=== PATIENT | male | born 1950 | race Caucasian/White ===

== ENCOUNTER 2019-10-11 12:35 | Emergency (ER) | payer OTHER ==
[~2019-10-11] VITALS: Ht 157.5 cm; Wt 63.5 kg
[2019-10-11 14:43] VITALS: BP 134/82
== END 2019-10-11 14:49 | disposition home or self-care (01) ==
LOC: ER 12:35
DX: M25.512 Pain in left shoulder (principal); M25.522 Pain in left elbow; M25.552 Pain in left hip

== ENCOUNTER 2021-10-04 11:01 | Inpatient (IN) | payer OTHER ==
[~2021-10-04] VITALS: Ht 162.6 cm; Wt 57.6 kg
[2021-10-04 11:02] VITALS: BP 93/54
[2021-10-04 11:44] LABS: ABSOLUTE NEUTROPHILS 9.3 thou/uL (1.4-8.2); BASOPHILS 0.2 % (0.0-2.0); EOSINOPHILS 1.9 % (0.0-3.0); HEMATOCRIT 37.2 % (42.0-52.0); HEMOGLOBIN 12.5 gm/dL (14.0-18.0); LYMPHOCYTES 6.6 % (24.0-44.0); MCH 32.8 pg (26.0-34.0); MCHC 33.7 g/dL (28.0-37.0); MCV 97.3 fL (80.0-100.0); MONOCYTES 2.7 % (1.0-8.0); PLATELET COUNT 207 thou/uL (150-400); POLYS 88.6 % (36.0-66.0); RBC 3.83 mil/uL (4.50-6.00); RDW 12.7 % (10.5-14.5); WBC 10.5 thou/uL (4.0-11.0)
[2021-10-04 11:44] LABS: URINE BILIRUBIN NEGATIVE (Negative); URINE BLOOD NEGATIVE (Negative); URINE CLARITY CLEAR; URINE COLOR YELLOW; URINE GLUCOSE-RANDOM* NEGATIVE (Negative); URINE KETONES NEGATIVE (Negative); URINE LEUKOCYTES-REFLEX NEGATIVE (Negative); URINE NITRITE-REFLEX NEGATIVE (Negative); URINE PROTEIN (DIPSTICK) NEGATIVE (Negative); URINE SPECIFIC GRAVITY 1.015 (1.005-1.035); URINE UROBILINOGEN 0.2 E.U./dl (0.2-1.0)
[2021-10-04 11:53] LABS: CALCIUM 8.8 mg/dL (8.5-10.1); CREATININE 1.2 mg/dL (0.7-1.3); POTASSIUM 3.5 mmol/L (3.5-5.1)
[2021-10-04 12:05] LABS: ALBUMIN 2.7 g/dL (3.4-5.0); DIRECT BILIRUBIN 0.2 mg/dL (<0.1-0.2); TOTAL BILIRUBIN 0.5 mg/dL (0.2-1.0)
--- NOTE | 2021-10-04 12:54 | NUR ---
Mk-Brother [phone]
[2021-10-04 14:05] VITALS: BP 109/58
[2021-10-04 14:17] VITALS: BP 98/53
[2021-10-04 14:57] VITALS: BP 125/65
--- NOTE | 2021-10-04 18:04 | NUR ---
ADMISSION NOTE: PT ADMITTED APPROX 1500. A/O X 1, ORIENTED TO SELF ONLY. PT COMPLAINS OF GENERALIZED PAIN 10/10. ON 4 L NC. PER REPORT FROM ED, PT IS ON 6L NC AT HOME. TELEMETRY IN PLACE. CONSENTS SIGNED. PT TO USE URINAL AND BSC X 1 ASSIST. ORIENTED PT TO ROOM, CALL LIGHT AND BEDSIDE TABLE WITHIN REACH. PT POOR HISTORIAN AND CANNOT RECALL MEDICAL HISTORY OR INFORMATION TO CONTACT FAMILY. PT ON ENHANCED PRECAUTIONS UNTIL PCR TEST HAS RESULTS. CALLED CONSULTS, NO NEEDS ANA ROSA, WILL CONTINUE TO MONITOR.
[2021-10-04 19:40] VITALS: BP 120/71
[2021-10-05 03:15] VITALS: BP 125/65
[2021-10-05 03:42] LABS: ABSOLUTE NEUTROPHILS 11.8 thou/uL (1.4-8.2); BASOPHILS 0.2 % (0.0-2.0); EOSINOPHILS 0.8 % (0.0-3.0); HEMATOCRIT 35.5 % (42.0-52.0); HEMOGLOBIN 11.8 gm/dL (14.0-18.0); LYMPHOCYTES 8.5 % (24.0-44.0); MCH 32.5 pg (26.0-34.0); MCHC 33.3 g/dL (28.0-37.0); MCV 97.8 fL (80.0-100.0); MONOCYTES 3.7 % (1.0-8.0); PLATELET COUNT 222 thou/uL (150-400); POLYS 86.8 % (36.0-66.0); RBC 3.63 mil/uL (4.50-6.00); RDW 13.1 % (10.5-14.5); WBC 13.6 thou/uL (4.0-11.0)
[2021-10-05 03:56] LABS: ALBUMIN 2.6 g/dL (3.4-5.0); CALCIUM 8.1 mg/dL (8.5-10.1); CREATININE 1.1 mg/dL (0.7-1.3); MAGNESIUM 1.9 mg/dL (1.8-2.4); POTASSIUM 3.2 mmol/L (3.5-5.1); TOTAL BILIRUBIN 0.3 mg/dL (0.2-1.0); TOTAL PROTEIN 5.9 g/dL (6.4-8.2)
--- NOTE | 2021-10-05 06:30 | NUR ---
CARE ASSUMED AT 1900. PT IS ALERT & ORIENTED X 2 (PERSON & PLACE). PT HAD MULTIPLE C/O OF PAIN. PAIN MEDS ADMINISTERED PRN AND PARTIAL RELIEF NOTED. BLOOD CULTURES CAME BACK POSITIVE FOR GRAM POSITIVE COCCI. NOTIFIED CHIROPRACTOR SOLE PRACTITIONER AND RECIEVED ORDERS. PT IS ABLE TO EXPRESS NEEDS AND ALL NEEDS ARE MET AT THIS TIME. BED ALARM ON AND CALL LIGHT WITHIN REACH. WILL CONTINUE TO MONITOR.
[2021-10-05 07:30] VITALS: BP 130/77
--- NOTE | 2021-10-05 10:58 | HC ---
[facility] [place] [address] CONSULTATION Name: ANDREW DIEGO Room #: 360-P [facility] IN M.R.#: [id number] Admission: 10/04/21 Attend Phys: Tita Reynolds MD Discharge: Date of : 50 Report #: [id number] THIS REPORT FOR: cc: FAM - Family physician unknown FAM - Family physician unknown Samuel Kimbrough MD ~ cc: Tita Reynolds MD DATE OF SERVICE: 10/04/2021 HISTORY OF PRESENT ILLNESS: The patient is a 71-year-old male with generalized weakness, abdominal pain. He is a fairly poor historian with a history of Alzheimer's dementia, he is unable to tell me how long he has been having abdominal pain. He wants me to discuss this with his sister. Currently, denies any fevers, chills. No chest pain or shortness of breath. Reason for GI consultation is elevated liver function tests and the patient underwent a CT scan of the abdomen and pelvis on admission that showed dilated intra and extrahepatic bile duct with common bile duct being 12 mm with suspected choledocholithiasis. His bilirubin is normal as well as his white count at this time. He also has a distended gallbladder on CT. Pancreas was unremarkable. PAST MEDICAL HISTORY: Hammertoe, Alzheimer's dementia. REVIEW OF SYSTEMS: Essentially unobtainable due to his mental status. ALLERGIES: No known drug allergies. SOCIAL HISTORY: Unknown. FAMILY HISTORY: Unknown. PHYSICAL EXAMINATION: VITAL SIGNS: Temperature is 37.1, pulse 105, blood pressure 198/53, respiratory rate is 24. GENERAL: He answers several questions, but is not interested in talking with me at length. He is in no acute distress. He says he is tired and wants to be left alone. HEENT: Sclerae nonicteric. Oropharynx clear. NECK: Supple. CARDIOVASCULAR: Regular rate and rhythm. CHEST: Decreased breath sounds bilaterally. ABDOMEN: Soft, is mildly distended. He is mildly tender in the right upper quadrant. EXTREMITIES: No cyanosis, clubbing or edema. [facility] [address] [place] [address] CONSULTATION Name: YASSINEMARTINEZZEANDREW Room #: 360-P [facility] IN .R.#: [id number] Admission: 10/04/21 Attend Phys: Tita Reynolds MD Discharge: Date of : 50 Report #: [id number] LABORATORY DATA: WBC is 10.5, hemoglobin 12.5, platelet count 207, sodium 138, potassium 3.5, chloride 104, bicarbonate 26, BUN 16, creatinine 1.2, total bilirubin 0.5, AST 90, ALT 70, alkaline phosphatase 157, lipase 65. ASSESSMENT AND PLAN: Elevated liver function test, recent history of abdominal pain. The patient is a poor historian. He does have a distended gallbladder. He also has a dilated common bile duct with suggested common bile duct stones. Bilirubin is normal at this time. The patient may need ERCP in the near future. Agree with antibiotics. Surgery has been consulted as well. The patient does have an infiltrate in is lungs on CT. COVID is negative. We will continue to follow. Thank you for allowing me to participate in his care. <ELECTRONICALLY SIGNED> By: Samuel Kimbrough MD 10/05/21 1058 1345 [id number] Samuel Kimbrough MD /nt
[2021-10-05 11:13] VITALS: BP 132/72
[2021-10-05] MEDS ORDERED: ALPRAZOLAM1 M1 PO (11:20)
[2021-10-05] MEDS ORDERED: PROSCAR 5MG TABL5 M1 PO (11:21)
[2021-10-05] MEDS ORDERED: KAPSPARGO SPRIN25 MG PO (11:21)
[2021-10-05] MEDS ORDERED: MEMANTINE HCL E28 MG PO (11:23)
[2021-10-05] MEDS ORDERED: PROTONIX40 M2 PO (11:24)
[2021-10-05] MEDS ORDERED: TAMSULOSIN HCL0.4 MG PO (11:24)
[2021-10-05] MEDS ORDERED: HYDROCODON-ACE1 EAC7 PO (11:25)
[2021-10-05] MEDS ORDERED: LIPITOR 20 MG T20 M1 PO (11:25)
[2021-10-05] MEDS ORDERED: LEXAPRO20 MG PO (11:25)
[2021-10-05] MEDS ORDERED: PROBIOTIC1 EAC7 PO (11:26)
[2021-10-05] MEDS ORDERED: ASA81BEC PO (11:26)
[2021-10-05] MEDS ORDERED: SUPER THERAVIT1 EACH PO (11:27)
[2021-10-05] MEDS ORDERED: VITAMIN C250 MG PO (11:27)
[2021-10-05] MEDS ORDERED: OMEGA 3 FISH O1 EACH PO (11:28)
[2021-10-05] MEDS ORDERED: BENADRYL25 MG PO (11:29)
[2021-10-05] MEDS ORDERED: BIOFREEZE118 ML TOP (11:30)
[2021-10-05] MEDS ORDERED: PROAIR HFA8.5 GM INH (11:30)
[2021-10-05] MEDS ORDERED: WIXELA 250-501 EACH NASAL (11:31)
[2021-10-05 15:47] VITALS: BP 139/80
--- NOTE | 2021-10-05 18:21 | NUR ---
PT A/O X 1, ONLY ORIENTED TO SELF. PT FREQUENTLY CALLING OUT FOR HELP THROUGHOUT SHIFT. PT FREQUENT COMPLAINTS OF PAIN, PT STATING PAIN MEDICATION IS NOT EFFECTIVE. PT THREATENED TO LEAVE AMA THIS MORNING, STATING "IF I CANT GET A COLA, IM LEAVING, YOU CANT KEEP ME HERE". AFTER SPEAKING WITH GI DR, PT ON SOFT DIET. PT TO BE NPO AFTER 6 AM 10/06/21 FOR ERCP PROCEDURE. THIS RN SPOKE WITH FAMILY AND RECIEVED NEW INFORMATION ABOUT PT. PT HX OF ALZHEIMERS, ACID REFLUX, HYPERCHOLESTEROLEMIA, COPD, NOT ON HOME 02, PREVIOUS SHOULDER AND HIP REPLACEMENT, AND CVA X 3. PT BROTHER ALSO STATED TO THIS RN THAT PT CANNOT READ OR WRITE. PT BROTHER WOULD LIKE TO GET DPOA PAPERWORK COMPLETED THIS HOSPITALIZATION. PT USES WALKER AT BASELINE. MED REC ALSO UPDATED. PT FREQUENTLY ATTEMPTS TO GET OUT OF BED, EDUCATION ON FALL PRECAUTIONS NOT EFFECTIVE. BM X 5 THIS SHIFT, DARK GREEN IN COLOR. NO CURRENT NEEDS, WILL CONTINUE TO MONITOR.
[2021-10-05 19:49] VITALS: BP 129/64
[2021-10-06 02:30] VITALS: BP 139/57
[2021-10-06 07:20] VITALS: BP 130/59
--- NOTE | 2021-10-06 07:36 | EKG ---
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
[2021-10-06 08:06] LABS: BASOPHILS 0.3 % (0.0-2.0); EOSINOPHILS 0.8 % (0.0-3.0); HEMATOCRIT 35.7 % (42.0-52.0); HEMOGLOBIN 11.6 gm/dL (14.0-18.0); LYMPHOCYTES 8.7 % (24.0-44.0); MCHC 32.5 g/dL (28.0-37.0); MCV 101.3 fL (80.0-100.0); MONOCYTES 4.8 % (1.0-8.0); PLATELET COUNT 192 thou/uL (150-400); POLYS 85.4 % (36.0-66.0); RBC 3.52 mil/uL (4.50-6.00); RDW 13.4 % (10.5-14.5); WBC 9.3 thou/uL (4.0-11.0)
[2021-10-06 08:15] LABS: ALBUMIN 2.6 g/dL (3.4-5.0); CALCIUM 8.1 mg/dL (8.5-10.1); CREATININE 0.9 mg/dL (0.7-1.3); MAGNESIUM 1.7 mg/dL (1.8-2.4); POTASSIUM 3.1 mmol/L (3.5-5.1); TOTAL BILIRUBIN 0.3 mg/dL (0.2-1.0); TOTAL PROTEIN 5.5 g/dL (6.4-8.2)
[2021-10-06 09:10] VITALS: BP 125/61
--- NOTE | 2021-10-06 09:45 | NUR ---
RN NOTE FOR 10/05/21 TO 10/06/21 7P-7A. PT PLEASANT AND COOPERATIVE EARLIER DURING THE SHIFT JUST MILDLY CONFUSED. LATER DURING THE SHIFT PT WAS MEDICATED FOR PAIN AND ANXIETY. HE BECAME NORE CONFUSED AND IMPULSIVE. NS WAS ATTEMTING TO FREE HIS IV LINE FROM LYING UNDERNEATH HIS ARM BECAUSE HIS IV WAS ALARMING HE BEGAN YELLING AND TOLD NS TO LEAVE. PT BEGAN TO GET UP OOB AND PULLED ON HIS IV AND O2 TUBING. I CALLED FOR CHARGE NS FOR ASSISTANCE WITH PT AND PT BEGAN TO YELL AT HIM WELL. PT PULLED OUT HIS IV. I ATTEMPTED TO TAKE DRESSING OFF AND START ANOTHER IV AND PT GOT VERY ANGRY WITH THIS NS . I EXPLAINED NEED FOR IN FOR FLUIDS AND ABX. PT WAS REFUSING. PT AGREED TO IV IF HE COULD GET HIS PAIN MEDS. IV PLACED PAIN MEDS GIVEN. PT APOLOGIZED TO NS FOR HIS [place] FLASHBACK DREAM WHEN HE WAS AWAKENED IN THE MIDDLE OF HIS SLEEP. PT UP AD DOWN TO BSC. FORGETFUL THAT HE JUST GOT UP. BED ALARM IS ON. NPO AFTER MN FOR ERCP. SPKE WITH PT'S BROTHER KRZYSZTOF REGARDING COMING TO SEE PT. SW TO SEE PT AND BROTHERS RE DPOA ETC. THE [place] WAR. HE TOLD
[2021-10-06 11:27] VITALS: BP 139/57
--- NOTE | 2021-10-06 16:38 | NUR ---
INITIAL ASSESSMENT: Received consult to assist with DPOA ppwk. EVELYN reviewed chart and spoke with nursing and attending physician. Pt was admitted from home due to acute cholecystitis. Pt is currently on IV abx and 2L of O2. Pt placed in isolation to r/o c.diff. Pt is off the unit having ERCP. Psych consulted to evaluate pt for ability to make decisions. Pt with hx of dementia. No family present during time of SW visit. EVELYN spoke with pt's brother, Mk, via phone. Introduced role of EVELYN. Per Mk, pt lives at home with his brothers, Mk and Chris. Prior to admission, pt was using a walker. Pt has used HH in the past following hip surgery. Pt has also been to a SNF. Pt's brother is unsure of name of providers. Pt's PCP is Dr. Kip Brown. EVELYN discussed that therapy evals will be ordered to assist with discharge needs. Mk states that family would prefer that pt return home with HH. EVELYN updated attending physician and requested therapy evals to be ordered. EVELYN is following to assist as needed with discharge planning.
[2021-10-06 18:22] VITALS: BP 140/63
[2021-10-06 19:28] VITALS: BP 147/83
--- NOTE | 2021-10-06 20:00 | NUR ---
RN ASSUMED PT'S CARE AT 0700-1900PM, PT IS A&OX2 ( PERSON AND PLACE), BUT PT IS CONFUSED AND IMPULSIVE AT TIME, PT IS HIGH FALL RISK , PT IS CONTINUING IV ABX AND PAIN MANAGEMENT, RN HAS REPORTED PT'S LOW K+ 3.1 ,MAG+1.7, NEW ORDER RECEIVED, PT WAS GOING TO GI LAB AT 1430PM, PT COME BACK FROM GI LAB ABOUT 1800PM,PT HAS EGD DONE ( BALLOON DILATTION), PT'S VS ARE STABLE, RN HAS REPORTED HOSPITAL DR AND GI DR ABOUT PT'S ABDOMINAL DISTENDED, NEW ORDER X-RAY KUB , RN HAS REPORTED TO NEXT SHIFT TO KEEP EYES ON PT.
--- NOTE | 2021-10-06 20:22 | NUR ---
jose daniel wnl. no f/u necessary per report.
--- NOTE | 2021-10-06 22:22 | NUR ---
PT FREQUENTLY UP AND OOB STEADY GAIT. REPETITIVE STATEMENTS REGARDING MARTIAL ARTS, ABILITY TO WALK. PT HAD LOOSE STOOL X 1. IVF INTACT. ABD DISTENDED AND SOFT, KUB OBTAINED. PALE SKIN TONE. PT NOTED TO HAVE BUE TREMORS. BED ALARM ON.
[2021-10-07 03:31] VITALS: BP 141/72
[2021-10-07 08:37] LABS: ABSOLUTE NEUTROPHILS 7.3 thou/uL (1.4-8.2); BASOPHILS 0.1 % (0.0-2.0); HEMATOCRIT 37.4 % (42.0-52.0); HEMOGLOBIN 12.3 gm/dL (14.0-18.0); LYMPHOCYTES 9.4 % (24.0-44.0); MCH 32.9 pg (26.0-34.0); MCHC 32.9 g/dL (28.0-37.0); MCV 100.1 fL (80.0-100.0); MONOCYTES 4.5 % (1.0-8.0); PLATELET COUNT 195 thou/uL (150-400); RBC 3.73 mil/uL (4.50-6.00); RDW 13.3 % (10.5-14.5); WBC 8.4 thou/uL (4.0-11.0)
[2021-10-07 09:05] LABS: ALBUMIN 2.6 g/dL (3.4-5.0); CALCIUM 8.4 mg/dL (8.5-10.1); MAGNESIUM 2.2 mg/dL (1.8-2.4); POTASSIUM 3.4 mmol/L (3.5-5.1); TOTAL BILIRUBIN 0.3 mg/dL (0.2-1.0); TOTAL PROTEIN 6.1 g/dL (6.4-8.2)
--- NOTE | 2021-10-07 17:05 | NUR ---
Case discussed in team rounds. Ranulfo venegas today. Brothers hoping pt can come home with HH at [place]. PT/OT and psych evals pending. Will follow.
[2021-10-07 19:22] VITALS: BP 151/80
[2021-10-08 03:25] VITALS: BP 155/83
--- NOTE | 2021-10-08 06:32 | NUR ---
ASSUMED PT CARE AT 1900. PT IS ALERT & ORIENTED X 1-2, IS CALM & COOPERATIVE. PT HAD C/O OF GENRERALIZED PAIN. ADMINISTERED PAIN MEDS AND NOTED RELIEF. CURRENTLY ON 4L O2 NC AND O2 SATS 94-95%. VSS AFEBRILE. LAP BETO SITES C/D/I. IV ABX & IVF ADMINISTERED. ALL NEEDS ARE MET AT THIS TIME. CONTINUE WITH PLAN OF CARE.
[2021-10-08 07:15] VITALS: BP 143/73
[2021-10-08 11:06] VITALS: BP 147/69
[2021-10-08 12:52] LABS: HEMATOCRIT 33.5 % (42.0-52.0); HEMOGLOBIN 11.4 gm/dL (14.0-18.0); MCH 32.3 pg (26.0-34.0); RBC 3.53 mil/uL (4.50-6.00); RDW 12.7 % (10.5-14.5); WBC 12.5 thou/uL (4.0-11.0)
[2021-10-08 12:55] LABS: MCV 95.1 fL (80.0-100.0)
[2021-10-08 13:08] LABS: CALCIUM 7.9 mg/dL (8.5-10.1)
[2021-10-08 13:10] LABS: POTASSIUM 2.4 mmol/L (3.5-5.1)
--- NOTE | 2021-10-08 15:19 | NUR ---
EVELYN reviewed chart and spoke with nursing and attending physician. Pt had karie venegas yesterday. PT/OT ordered. Recommendation made for pt to go to post-acute care. EVELYN met with pt at bedside. Pt is currently on oxygen. Pt states he is hoping to go home. SW left in-network SNF list in wall server assistant for family to review. Will need insurance authorization. EVELYN spoke with pt's brother, Mk, to provide update and discuss post-acute placement. Mk requests SW contact his sister, Viola. EVELYN placed call to Viola ([phone]). Voice mailbox has not been set up. EVELYN is following to assist as needed with discharge planning.
[2021-10-08 15:21] VITALS: BP 152/72
--- NOTE | 2021-10-08 18:41 | NUR ---
PT A/O X 1. PT IMPULSIVE AND ATTEMPTS TO GET OUT OF BED, BED ALARM ON. SPOKE WITH FAMILY X 3 THIS SHIFT, AND EDUCATED PT FAMILY ABOUT HAVING 1 DESIGNATED FAMILY MEMBER TO GET UPDATES. POOR APPETITE. ON 4 L NC. PT STATES TO RN MULTIPLE TIMES "YOU PUT CRACK COCAINE IN MY FOOD, AND IN MY IV". NO COMPLAINTS OF PAIN. WILL CONTINUE TO MONITOR.
[2021-10-08 19:10] VITALS: BP 137/66
[2021-10-09 04:27] VITALS: BP 171/85
--- NOTE | 2021-10-09 05:14 | NUR ---
PROGRESS PT A/O X4 BUT IMPULSIVE AND FORGETFUL AT TIMES PULLED 2 IV'S OUT THIS SHIFT AND COULDN'T SAY WHY HE DID. TELEMETRY INTACT READING SR/SB IN THE 60'S. IV FLUIDS INFUSING ORDERED, IV ANTIBIOTICS CONTINUE. RATING ABDOMINAL PAIN A 6 AND HYDROCODONE GIVEN WITH SOME EFFECT. VOIDING QS PER URINAL. NO BM THIS SHIFT. BS POSITIVE LAP SITES TO ABDOMEN X 4 ROOM SERVICE RUNNER WELL APPROXIMATED WITH NO DRAINAGE NOTED.
[2021-10-09 07:27] VITALS: BP 163/75
[2021-10-09 11:15] VITALS: BP 160/79
--- NOTE | 2021-10-09 14:07 | PATH ---
[facility] [place] [address] PATHOLOGY RPT PROCEDURE Name: ANDREW DIEGO Room #: 360-P [facility] IN M.R.#: [id number] Admission: 10/04/21 Date of : 50 Discharge: Report #: [id number] Path Case #: [id number] [facility] Accession Number: [id number] . 01 Material submitted: . gallbladder - GALLBLADDER . 01 Clinical history: . LAPAROSCOPIC CHOLECYSTECTOMY W/GRAM CHOLEDOCHOLILITHIASIS . 02 Diagnosis: Gallbladder, cholecystectomy: - Subacute cholecystitis without cholelithiasis. . (ANK:mmbe; 10/08/2021) [facility] 10/08/2021 1204 Local . 02 Electronically signed: . Brunilda Washburn MD, Pathologist NPI- [id number] . 01 Gross description: . Fixative: Formalin Labeled: Gallbladder Specimen received: Intact gallbladder Dimensions: 6.8 x 2.8 x 1.2 cm Serosa: Purple-red and wrinkled to roughened Lymph node: Not identified Mucosa: Yellow-red, velvety Average wall thickness: Up to 0.5 cm Calculi: None present within the specimen or container Abnormalities: None identified . A1- Business Systems Analyst body, fundus, and the cystic duct margin. ([facility]; 10/07/2021) NRI/NRI 10/07/2021 1712 Local . 02 Pathologist provided ICD-10: K81.1 . 02 CPT . [id number] Specimen Comment: A courtesy copy of this report has been sent to [phone] Specimen Comment: [id number] Specimen Comment: Report sent to / DR PORTILLO [address] [address] PATHOLOGY RPT PROCEDURE Name: JOHNATHONANDREW Yesica Room #: 360-P [facility].#: [id number] Admission: 10/04/21 Date of : 50 Discharge: Report #: [id number] Path Case #: [id number] Specimen Comment: A duplicate report has been generated due to demographic updates. Performed at: 01 [facility] [address] [facility] [address], [place] [id number] MD Myles Mora MD Phone: [phone] Performed at: [address] [id number] MD Brunilda Washburn MD Phone: [phone]
--- NOTE | 2021-10-09 14:29 | NUR ---
EVELYN reviewed chart and spoke with nursing and attending physician. Pt is progressing towards goals for discharge. EVELYN spoke with pt's sister, Viola, via phone to discuss discharge plan. Per Viola, family is wanting pt to return home with HH. Pt has been to a SNF in the past and became confused in an unfamiliar environment. Viola spent the night at the facility because pt would get up and out of his room. EVELYN discussed HH services with Viola. Viola states pt will have 24 hour care provided by family. Pt lives with his two brothers. Options for HH providers discussed. No preference voiced. EVELYN confirmed pt's home address. Pt is currently still on 2L of O2. Pt was not on O2 prior to admission. EVELYN discussed with attending physician. Anticipate discharge home tomorrow with HH services. EVELYN faxed HH referral to [facility] . Notified HH liaison. Rest/exercise oximetry will need to be ordered to determine home health needs. EVELYN is following to assist as needed with discharge planning.
[2021-10-09 15:04] VITALS: BP 165/80
--- NOTE | 2021-10-09 18:11 | NUR ---
RESUMED PT CARE THIS AM. PT ON 2L, PT IMPULSIVE AND WILL PULL OXYGEN OFF OCCASIONALLY. PT ALSO FREQUENTLY ATTEMPTS TO GET OUT OF BED, BED ALARM ON. THIS RN SPOKE WITH FAMILY X 2 TODAY. SPOKE WITH PT SISTER, WHO CLAIMS IS PT DPOA, BUT DOES NOT HAVE PAPERWORK TO PROVIDE HOSPTIAL. PT TO DISCHARGE WITH HH TOMORROW 10/10/21. FALL PRECAUTIONS IN PLACE. WILL CONTINUE TO MONITOR.
[2021-10-09 19:32] VITALS: BP 167/80
[2021-10-10 03:43] VITALS: BP 156/82
--- NOTE | 2021-10-10 04:49 | NUR ---
PROGRESS PT A/O X 4 REMAINS IMPULSIVE. GETS OOB WITHOUT CALLING BED ALARMS IN PLACE. PT'S GAIT FAIRLY STEADY HE JUST RUSHES AROUND TO GET ON BSC. HAD 5 SMALL LOOSE STOOLS MIRALAX HELD. VOIDING QS. APPETITE HAS IMPROVED SLIGHTLY PLAN TO DC HOME WITH FAMILY CARE AND HOME HEALTH. ATTEMPTED TO RESTART IV AND HE PULLED IT OUT BEFORE IT WAS HOOKED BACK UP TO FLUIDS, REFUSED ANOTHER RESTART.
[2021-10-10 07:32] VITALS: BP 146/89
--- NOTE | 2021-10-10 08:12 | P ---
[facility] [place] [address] PROCEDURE REPORT Name: ANDREW DIEGO Room #: 360-P ADM IN M.R.#: [id number] Admission: 10/04/21 Attend Phys: Tita Reynolds MD Discharge: Date of : 50 Report #: [id number] THIS REPORT FOR: cc: FAM - Family physician unknown FAM - Family physician unknown Samuel Kimbrough MD ~ cc: Jared Persaud MD, Tita Reynolds MD DATE OF SERVICE: 10/06/2021 PROCEDURE PERFORMED: Upper endoscopy with balloon dilation and attempted ERCP. HISTORY OF PRESENT ILLNESS: The patient is a 71-year-old male, fairly poor historian, who was admitted with abdominal pain, was noted to have elevated liver function test. AST on admission was 90, ALT 70, total bilirubin 0.5, alkaline phosphatase was 157. He underwent a CT scan of his abdomen and pelvis on 10/04/2021, which showed intra and extrahepatic biliary dilation, common bile duct was 12 mm in size with suspected choledocholithiasis. The gallbladder was distended as well. He has been placed on antibiotics. Surgery is following. The plan is for ERCP today. DESCRIPTION OF PROCEDURE: The risks and benefits of the procedure explained with his sister who is a durable power of consumer attorney. Those risks including but not limited to bleeding, perforation and the risk of sedation as well as the potential risk for post-ERCP pancreatitis. She understood these risks and gave informed consent. The procedure was performed in the operating room under general anesthesia. The patient is already on IV antibiotics 50 mg, indomethacin rectal suppository was given prior to the procedure as well. Next, I initially started with a standard Olympus upper endoscope as the patient had a CT of the chest on admission showing thickening of the distal esophagus. The scope was placed in the patient's mouth and advanced under direct vision into the esophagus, stomach and into the second portion of the duodenum. The upper and mid esophagus was normal. In the distal esophagus, grade D erosive esophagitis was noted. No evidence of stricture, no evidence of bleeding. Overall, the gastric mucosa was normal. The pylorus was normal and patent. The duodenal bulb was normal; however, in the first portion of the duodenum, it was difficult to pass the front-viewing scope through the first portion due to a tight turn and a mild narrowing in this area. No ulcerations or erosions were noted. When I was able to pass the scope through, a large diverticulum was noted. The papilla was not seen with the front-viewing scope. At this point, the scope was then withdrawn and a side-viewing scope was then introduced. This was advanced into the duodenal bulb. I attempted multiple times to pass the side-viewing scope, ERCP scope through the first portion of the duodenum, but was difficult and I was unsuccessful. At this point, I removed the ERCP scope and reintroduced the front-viewing scope. I then proceeded with balloon dilation of the first to second portion of the duodenum going from 15 mm all the [address] [address] PROCEDURE REPORT Name: ANDREW DIEGO Room #: 360-P [facility] IN .R.#: [id number] Admission: 10/04/21 Attend Phys: Tita Reynolds MD Discharge: Date of : 50 Report #: [id number] to 18 mm, holding this in place for 1 minute. At this point, the front-viewing scope was again withdrawn and the side-viewing scope was then replaced. Eventually with significant difficulty, I was able to advance the side-viewing scope into the second portion of the duodenum. At this point, I was able to visualize a diverticulum, which was large. I spent a fair amount of time looking throughout the diverticulum on the edges and unable to identify the major papilla. I used a sphincterotome to try to pull the mucosa around the edge of the diverticulum as well. Never seen the major papilla. At this point, the scope was then withdrawn and the procedure terminated. The patient tolerated the procedure well. IMPRESSION: 1. Grade D erosive esophagitis. 2. Balloon dilation of the first portion of the duodenum with a tight turn and narrowing in this area. 3. Large duodenal diverticulum. 4. Unsuccessful ERCP due to inability to locate major papilla due to anatomy and a large diverticulum in the second portion. RECOMMENDATIONS: 1. Would recommend daily PPI therapy long-term. 2. We will discuss with Dr. Persaud in General Surgery about possible laparoscopic cholecystectomy with intraoperative cholangiogram. 3. If common bile duct stones are seen, may need to consider patient being evaluated by Dr. Johnson at [facility] or at [facility]. Thank you for allowing me to participate in his care. <ELECTRONICALLY SIGNED> By: Samuel Kimbrough MD 10/10/2112 1635 55 Samuel Kimbrough MD /nt
[2021-10-10 10:33] VITALS: BP 146/89
--- NOTE | 2021-10-10 12:10 | NUR ---
DISCHARGE NOTE: EVELYN reviewed chart and spoke with nursing and attending physician. Pt is medically stable for discharge home today. Pt is on room air. EVELYN faxed discharge ppwk to [facility]. Notified HH liaison of pt's discharge. EVELYN met with pt at bedside to discuss discharge plan. Pt is aware and in agreement with plan. EVELYN spoke with pt's sister, Viola, via phone to discuss discharge plan. Viola states she has COVID and is unable to machine operator picker pt today. Pt's brother to come machine operator picker pt around 1600 this afternoon. Contact info for HH placed in pt's discharge summary. EVELYN updated pt's nurse regarding transportation time. No additional SW needs identified at this time. EVELYN is available to assist should needs arise.
[2021-10-10 12:44] LABS: HEMATOCRIT 35.8 % (42.0-52.0); HEMOGLOBIN 11.9 gm/dL (14.0-18.0); MCH 31.8 pg (26.0-34.0); MCHC 33.1 g/dL (28.0-37.0); RBC 3.73 mil/uL (4.50-6.00); RDW 12.7 % (10.5-14.5); WBC 15.9 thou/uL (4.0-11.0)
[2021-10-10 13:09] LABS: CALCIUM 8.2 mg/dL (8.5-10.1); CREATININE 1.2 mg/dL (0.7-1.3)
[2021-10-10 13:11] LABS: POTASSIUM 2.5 mmol/L (3.5-5.1)
--- NOTE | 2021-10-10 13:14 | EKG ---
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
[2021-10-10 14:50] LABS: SGOT 40 U/L (15-37); SGPT 48 U/L (16-63)
--- NOTE | 2021-10-10 18:32 | NUR ---
ASSUMED PATIENT CARE AT 0700. ALERT TO SELF. NOTED PATIENT HAS SEIZURE LOOK LIKE ACTIVITY AT 1250. AUTO BRAKE MECHANIC CALLED AND NEW ORDER RECEIVED. DISCHARGE CANCELED. CALLED DR NORMAN OFFICE THAT NEEDS COME TO SEE PATIENT, WILL KEEP MONITOR.
[2021-10-10 20:02] VITALS: BP 140/87
[2021-10-11 03:40] VITALS: BP 142/67
[2021-10-11 05:40] LABS: ALBUMIN 2.1 g/dL (3.4-5.0); CREATININE 0.9 mg/dL (0.7-1.3); TOTAL BILIRUBIN 0.2 mg/dL (0.2-1.0); TOTAL PROTEIN 5.2 g/dL (6.4-8.2)
[2021-10-11 05:43] LABS: HEMATOCRIT 32.4 % (42.0-52.0); HEMOGLOBIN 10.9 gm/dL (14.0-18.0); MCH 32.2 pg (26.0-34.0); MCHC 33.6 g/dL (28.0-37.0); POTASSIUM 2.7 mmol/L (3.5-5.1); RBC 3.37 mil/uL (4.50-6.00); WBC 11.1 thou/uL (4.0-11.0)
[2021-10-11 07:12] VITALS: BP 169/89
--- NOTE | 2021-10-11 07:30 | NUR ---
Pt. has been awake most of the night watching TV and din't go to sleep till later this am. Xanax given per pt. request stating he's feeling anxious about his IV. Frequently gets up to the commode (urgency) to void and had bm. Wears brief for occasional incontinence. No nausea or vomiting. Diclofenac ointment applied to left shoulder. Lap sites well aproximated , dermabonded. Tolerating diet. Critical K level of 2.7 called to [facility] and order received. Kcl 40 meq po given. Pt. pulled out IV this am , new IV placed on left hand and KCL IV given. Bed aalrm on , pt. is very impulsive.
[2021-10-11 10:16] VITALS: BP 146/89
[2021-10-11 10:23] VITALS: BP 146/89
--- NOTE | 2021-10-11 11:43 | NUR ---
PT DISCHARGING TODAY TO HOME WITH [facility] FAXED DC ORDERS/SUMMARY RECEIVED CONFIRMATION FROM ELLIOTT IN INTAKE SHE WILL CALL PT TO ARRANGE VISITS.
[2021-10-11 13:22] VITALS: BP 146/89
== END 2021-10-11 14:02 | disposition home health service (06) | DRG 853 ==
LOC: ER 11:01 → EROBS 13:25 → 3W 13:25
PROVIDERS: Hospitalist; Physician Assistant; ADMIT Internal Medicine; ATTEND Internal Medicine
PROC: 0WJP8ZZ Inspection of Gastrointestinal Tract, Via Natural or Artificial Opening Endoscopic Approach (ICD-10-PCS; principal; 2021-10-06)
PROC: 0D798ZZ Dilation of Duodenum, Via Natural or Artificial Opening Endoscopic (ICD-10-PCS; principal; 2021-10-06)
PROC: BF121ZZ Fluoroscopy of Gallbladder using Low Osmolar Contrast (ICD-10-PCS; 2021-10-07)
PROC: 0FT44ZZ Resection of Gallbladder, Percutaneous Endoscopic Approach (ICD-10-PCS; 2021-10-07)
DX: A41.81 Sepsis due to Enterococcus (principal); J18.9 Pneumonia, unspecified organism; K80.42 Calculus of bile duct with acute cholecystitis without obstruction; E46 Unspecified protein-calorie malnutrition; K22.10 Ulcer of esophagus without bleeding; K31.5 Obstruction of duodenum; Z20.822 Contact with and (suspected) exposure to COVID-19; G30.9 Alzheimer's disease, unspecified; F02.80 Dementia in other diseases classified elsewhere, unspecified severity, without behavioral disturbance, psychotic disturbance, mood disturbance, and anxiety; E87.6 Hypokalemia; E83.42 Hypomagnesemia; K57.10 Diverticulosis of small intestine without perforation or abscess without bleeding; R74.01 Elevation of levels of liver transaminase levels; R41.9 Unspecified symptoms and signs involving cognitive functions and awareness; R41.0 Disorientation, unspecified; Z82.49 Family history of ischemic heart disease and other diseases of the circulatory system; Z68.21 Body mass index [BMI] 21.0-21.9, adult; Z86.73 Personal history of transient ischemic attack (TIA), and cerebral infarction without residual deficits; Z28.21 Immunization not carried out because of patient refusal
CPT/HCPCS: 10879; 50010; 50101; 50411; 50555; 51297; 51489; 52265; 52266; 52287; 53307; 53310; 53312; 54022; 54118; 55245; 56462; 56525; 56526; 56530; 56674; 58115; 58574; 58910; 62110; 62900; 70005